=== PATIENT | female | born 1995 | race Caucasian/White ===

== ENCOUNTER 2018-10-05 22:01 | Emergency (ER) | payer SELFPAY ==
[~2018-10-05] VITALS: Ht 157.5 cm; Wt 61.2 kg
[~2018-10-05 22:01] MED LIST: ALBU8.5H6 IH; ETON68IM3 SQ
[2018-10-05] MEDS ORDERED: DEXAMETHASONE SOD PHOS 20 MG/5 ML VIAL. IM ONE (23:45)
[2018-10-05 23:50] VITALS: BP 120/88
[2018-10-05] MEDS ORDERED: CYCL10TA2 PO (23:53)
[2018-10-05] MEDS ORDERED: NAPR-514 PO (23:53)
--- NOTE | 2018-10-05 23:53 | PHYS DOC ---
Past Medical History Past Medical History: Asthma, Migraines (GANESH BENSON APRN) Past Surgical History: No Surgical History (GANESH BENSON APRN) Alcohol Use: Rarely Drug Use: None (GANESH BENSON APRN) Adult General Chief Complaint Chief Complaint: SHOULDER INJURY HPI HPI Patient is a 23 year old female who presents to the emergency room with complaints of right-sided neck, shoulder, and thoracic back pain after bowling on Friday. Patient denies any fall, blunt injury, or feeling anything pop while she was bowling. She states that if she raises her right arm her fingers feel numb and tingly. Currently she rates her pain 8 out of 10. She states that nothing has helped to alleviate the pain and the pain increases with movement of her right arm. (GANESH BENSON APRN) Review of Systems Review of Systems Constitutional: Denies fever or chills [] Musculoskeletal: see HPI Integument: Denies rash or skin lesions [] Neurologic: Denies headache, focal weakness or sensory changes [] (GANESH BENSON APRN) Current Medications Current Medications Current Medications Medications (Trade) Dose Ordered Sig/Kenia Start Time Stop Time Status Last Admin Dose Admin Dexamethasone Sodium Phosphate (Decadron) 10 mg 1X ONCE 10/05/18 23:45 10/05/18 23:46 DC 10/05/18 23:39 10 MG (MARYCRUZ FERRELL DO) Allergies Allergies Allergies Coded Allergies Type Severity Reaction Last Updated Verified fluticasone Allergy Mild Vomiting 10/05/18 Yes levalbuterol Allergy Mild Vomiting 10/05/18 Yes salmeterol Allergy Mild Vomiting 10/05/18 Yes (MARYCRUZ FERRELL DO) Physical Exam Physical Exam Constitutional: Well developed, well nourished, no acute distress, non-toxic appearance. [] HENT: Normocephalic, atraumatic, bilateral external ears normal, nose normal. [ ] Eyes: conjunctiva normal, no discharge. [] Neck: Normal range of motion, no bony tenderness, supple, no stridor; R paraspinal cervical TTP Lungs & Thorax: Respirations even and unlabored, no retractions, no respiratory distress Skin: Warm, dry, no erythema, no rash. [] Back: No bony tenderness; right thoracic paraspinal TTP Extremities: No cyanosis, no clubbing, ROM intact, no edema. [] Neurologic: Alert and oriented X 3, normal motor function, no focal deficits noted. [] Psychologic: Affect normal, judgement normal, mood normal. [] (GANESH BENSON APRN) Current Patient Data Vital Signs Vital Signs Date Time Temp Pulse Resp B/P (MAP) Pulse Ox O2 Delivery O2 Flow Rate FiO2 10/05/18 23:50 87 19 120/88 (99) 100 Room Air 10/05/18 22:07 98.3 98.3 (MARYCRUZ FERRELL DO) EKG EKG [] (GANESH BENSON APRN) Radiology/Procedures Radiology/Procedures [] (GANESH BENSON APRN) Course & Med Decision Making Course & Med Decision Making Pertinent Labs and Imaging studies reviewed. (See chart for details) [] (GANESH BENSON APRN) Dragon Disclaimer Dragon Disclaimer This electronic medical record was generated, in whole or in part, using a voice recognition dictation system. (GANESH BENSON APRN) Departure Departure Impression: Primary Impression: Strain of cervical portion of right trapezius muscle Additional Impressions: Right-sided thoracic back pain Cervical radiculopathy, acute Disposition: 01 HOME, SELF-CARE Condition: STABLE Referrals: NO PCP (PCP) PEDRITO HEREDIA MD Patient Instructions: Back Pain, Adult, [id number], Cervical Radiculopathy, [id number], Cervical Sprain, [id number] Additional Instructions: Fill the prescriptions and use as directed. Apply ice to sore areas as needed for pain relief. Follow up with Dr. Heredia if symptoms persist, return to the ER if symptoms worsen. 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 I was available for consultation as needed during the patient's visit in the emergency department. I agree with the clinical impression, plan, and disposition. (MARYCRUZ FERRELL DO) Problem Qualifiers Additional Impressions: Right-sided thoracic back pain Chronicity: acute Qualified Codes: M54.6 - Pain in thoracic spine GANESH BENSON APRN Oct 05, 2018 23:53 MARYCRUZ FERRELL DO Oct 25, 2018 12:45
== END 2018-10-05 23:55 | disposition home or self-care (01) ==
LOC: ER 22:01
DX: S16.1XXA Strain of muscle, fascia and tendon at neck level, initial encounter (principal); M54.12 Radiculopathy, cervical region; M54.6 Pain in thoracic spine; J45.909 Unspecified asthma, uncomplicated; G43.909 Migraine, unspecified, not intractable, without status migrainosus; Z88.8 Allergy status to other drugs, medicaments and biological substances; X50.9XXA Other and unspecified overexertion or strenuous movements or postures, initial encounter; Y93.89 Activity, other specified; Y92.89 Other specified places as the place of occurrence of the external cause; Y99.8 Other external cause status
CPT/HCPCS: 96372; 99283; J1100